=== PATIENT | female | born 2000 | race Caucasian/White ===

== ENCOUNTER 2025-08-14 17:27 | Emergency (ER) | payer OTHER ==
[~2025-08-14] VITALS: Ht 162.6 cm; Wt 45.7 kg
[2025-08-14 18:27] LABS: BASOPHILS 0.1 % (0.1-1.2); EOSINOPHILS 0 % (0.7-5.8); LYMPHOCYTES 8.7 % (19.3-51.7); MCH 29.1 PG (25.6-32.2); MCHC 34.2 g/dL (32.2-35.5); MCV 85.1 fL (79.4-94.8); MONOCYTES 8.0 % (4.7-12.5); NEUTROPHILS 82.9 % (34.0-71.1); RBC 4.64 M/uL (3.93-5.22)
[2025-08-14 18:44] LABS: ALCOHOL, MEDICAL <3 ng/dL (<3); ALT (SGPT) 17 U/L (14-59); AST (SGOT) 22 U/L (15-37); GLOMERULAR FILTRATION RATE,EST 130 mL/min (>60); PROTEIN, TOTAL 8.3 g/dL (6.4-8.2); UREA NITROGEN 13 mg/dL (7-18)
[2025-08-14] MEDS ORDERED: LACTATED RINGER'S 1,000 ML IV ONE (19:45)
[2025-08-14] MEDS ORDERED: LORazepam 2 MG/ML VIAL IV ONE (19:45)
[2025-08-14 19:54] LABS: BLOOD/HGB, URINE LARGE (Negative); KETONE, URINE SMALL (Negative); LEUK ESTERASE, URINE NEGATIVE (negative); NITRITE, URINE NEGATIVE (negative)
[2025-08-14 19:55] VITALS: BP 131/74
[2025-08-14 19:57] LABS: PREGNANCY TEST, URINE NEGATIVE (NEG)
[2025-08-14 20:05] LABS: BACTERIA, URINE NONE SEEN /hpf (negative); CASTS, URINE NONE SEEN \\lpf; CRYSTALS, URINE AMORPHOUS URATES 1+ (0-1+); EPITHELIAL CELLS, URINE SQUAMOUS 2+ /lpf (0-1+); REFLEX CULTURE, URINE No (No)
[2025-08-14 20:16] LABS: AMPHETAMINES, URINE NEGATIVE (NEGATIVE); BARBITURATES, URINE NEGATIVE (NEGATIVE); BENZODIAZEPINE, URINE NEGATIVE (NEGATIVE); CANNABINOID, URINE POSITIVE (NEGATIVE); COCAINE, URINE POSITIVE (NEGATIVE); ECSTASY, URINE NEGATIVE (NEGATIVE); FENTANYL, URINE NEGATIVE (NEGATIVE); METHADONE, URINE NEGATIVE (NEGATIVE); OPIATES, URINE NEGATIVE (NEGATIVE); OXYCODONE, URINE NEGATIVE (NEGATIVE); PHENCYCLIDINE, URINE NEGATIVE (NEGATIVE)
== END 2025-08-14 19:55 | disposition left against medical advice (07) ==
LOC: ED 17:27
PROVIDERS: Emergency Medicine
DX: R56.9 Unspecified convulsions (principal); Z53.29 Procedure and treatment not carried out because of patient's decision for other reasons
CPT/HCPCS: 36415; 80053; 80307; 81001; 83735; 84703; 85025; 99284; G0480

== ENCOUNTER 2025-08-25 04:07 | Emergency (ER) | payer OTHER ==
[~2025-08-25] VITALS: Ht 162.6 cm; Wt 46.0 kg
--- OUTSIDE RECORDS SUMMARY | 2025-08-25 04:14 | XMS ---
PreManage Notification: MARTIN CEBALLOS Security Save All Operator Events No recent Security Events currently on file CRITERIA MET - [facility] - 2 Visits in 30 Days CARE PROVIDERS -Carlos DMD Dentist: Movie Actor Current PHONE: [phone] BASIM COOPER Nurse Practitioner: Family [facility] [phone] [facility]: [facility] MEDICAL PHONE: [phone] MANUEL MIJARES Nurse Practitioner Current PHONE: [phone] CHANTEL ALBERT) Physician Audio Operator James KEITA PHONE: [phone] Josefa has no Care Guidelines for this patient. EMahin VISIT COUNT (12 MO.) 2 ANSHUL Calderon (Lamar TRONCOSO) TOTAL 3 NOTE: Visits indicate total known visits. ED/UCC VISIT TRACKING (12 MO.) 08/25/2025 04:08 ANSHUL Velazquez TYPE: Emergency COMPLAINT: - SEIZURE 08/14/2025 17:29 ANSHUL [place] TYPE: Emergency COMPLAINT: - SEIZURE DIAGNOSES: - Procedure and treatment not carried out because of patient's decision for other reasons - Unspecified convulsions 12/13/2024 12:49 Candie SANCHEZ [place] ([facility]) TYPE: Emergency DIAGNOSES: - Streptococcal pharyngitis - Fever (9 Weeks To 74 Years) - Poss Infection INPATIENT VISIT TRACKING (12 MO.) No inpatient visits to display in this time frame [id number]
[2025-08-25 04:20] LABS: BASOPHILS 0.1 % (0.1-1.2); EOSINOPHILS 0 % (0.7-5.8); LYMPHOCYTES 10.1 % (19.3-51.7); MCH 29.1 PG (25.6-32.2); MCHC 34.5 g/dL (32.2-35.5); MCV 84.4 fL (79.4-94.8); MONOCYTES 6.2 % (4.7-12.5); NEUTROPHILS 83.2 % (34.0-71.1); RBC 4.50 M/uL (3.93-5.22)
[2025-08-25 04:54] LABS: GLOMERULAR FILTRATION RATE,EST 125.0 mL/min (>60); UREA NITROGEN 10.0 mg/dL (7-18)
[2025-08-25 04:55] LABS: ALT (SGPT) 21.0 U/L (14-59); AST (SGOT) 21.0 U/L (15-37); PROTEIN, TOTAL 7.5 g/dL (6.4-8.2)
[2025-08-25 05:00] LABS: BLOOD/HGB, URINE MODERATE (Negative); KETONE, URINE NEGATIVE (Negative); LEUK ESTERASE, URINE NEGATIVE (negative); NITRITE, URINE NEGATIVE (negative)
[2025-08-25 05:03] LABS: PREGNANCY TEST, URINE NEGATIVE (NEG)
[2025-08-25 05:06] LABS: BACTERIA, URINE RARE /hpf (negative); CASTS, URINE NONE SEEN \\lpf; CRYSTALS, URINE NONE SEEN (0-1+); EPITHELIAL CELLS, URINE SQUAMOUS 3+ /lpf (0-1+); REFLEX CULTURE, URINE No (No)
[2025-08-25 05:14] LABS: AMPHETAMINES, URINE NEGATIVE (NEGATIVE); BARBITURATES, URINE NEGATIVE (NEGATIVE); BENZODIAZEPINE, URINE NEGATIVE (NEGATIVE); CANNABINOID, URINE POSITIVE (NEGATIVE); COCAINE, URINE POSITIVE (NEGATIVE); ECSTASY, URINE NEGATIVE (NEGATIVE); FENTANYL, URINE NEGATIVE (NEGATIVE); METHADONE, URINE NEGATIVE (NEGATIVE); OPIATES, URINE NEGATIVE (NEGATIVE); OXYCODONE, URINE NEGATIVE (NEGATIVE); PHENCYCLIDINE, URINE NEGATIVE (NEGATIVE)
[2025-08-25] MEDS ORDERED: HYDROCODONE BIT/ACETAMINOPHEN 5/325 MG 1 TAB HOME.PACK PO PRN (06:15)
[2025-08-25 06:32] VITALS: BP 136/93
== END 2025-08-25 06:34 | disposition home or self-care (01) ==
LOC: ED 04:07
PROVIDERS: Emergency Medicine
DX: R56.9 Unspecified convulsions (principal); S62.634A Displaced fracture of distal phalanx of right ring finger, initial encounter for closed fracture; F14.10 Cocaine abuse, uncomplicated; Y04.8XXA Assault by other bodily force, initial encounter; Z91.030 Bee allergy status
CPT/HCPCS: 36415; 70450; 73130; 80053; 80307; 81001; 84703; 85025; 99284-25

== ENCOUNTER 2025-09-08 22:08 | Emergency (ER) | payer OTHER ==
[~2025-09-08] VITALS: Ht 162.6 cm; Wt 49.3 kg
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
[2025-09-09] MEDS ORDERED: KEPPRA500 MG PO (02:23)
[2025-09-09 03:06] VITALS: BP 98/53
== END 2025-09-09 03:07 | disposition home or self-care (01) ==
LOC: ED 22:08
DX: G40.909 Epilepsy, unspecified, not intractable, without status epilepticus (principal); Z91.030 Bee allergy status
CPT/HCPCS: 99284

== ENCOUNTER 2025-09-09 12:12 | Emergency (ER) | payer OTHER ==
[~2025-09-09] VITALS: Ht 162.6 cm; Wt 49.3 kg
[~2025-09-09 12:12] MED LIST: KEPPRA500 MG PO
--- OUTSIDE RECORDS SUMMARY | 2025-09-09 12:19 | XMS ---
PreManage Notification: MARTIN CEBALLOS Security Hand Shaper Events No recent Security Events currently on file CRITERIA MET - [facility] - 2 Visits in 30 Days CARE PROVIDERS -Carlos DMD Dentist: Instructor Adjunct Surgical Technician Current PHONE: [phone] BASIM COOPER Nurse Practitioner: Family Current PHONE: [phone] [facility]: [facility] MEDICAL PHONE: [phone] MANUEL MIJARES Nurse Practitioner Current PHONE: [phone] CHANTEL ALBERT) Physician Lens Edger James KEITA PHONE: [phone] Josefa has no Care Guidelines for this patient. EMahin VISIT COUNT (12 MO.) 4 ANSHUL Calderon (Lamar TRONCOSO) TOTAL 5 NOTE: Visits indicate total known visits. ED/UCC VISIT TRACKING (12 MO.) 09/09/2025 12:12 [place]: [place] COMPLAINT: - SEIZURE 09/08/2025 22:08 [place] TYPE: Emergency COMPLAINT: - SEIZURE 08/25/2025 [...] reasons - Unspecified convulsions 12/13/2024 12:49 Candie ZEE ([facility]) TYPE: Emergency DIAGNOSES: - Streptococcal pharyngitis - Fever (9 Weeks To 74 Years) - Poss Infection INPATIENT VISIT TRACKING (12 MO.) No inpatient visits to display in this time frame [id number]
[2025-09-09] MEDS ORDERED: LORazepam 2 MG/ML VIAL IV ONE (13:15)
[2025-09-09 14:14] LABS: BASOPHILS 0.3 % (0.1-1.2); EOSINOPHILS 0.3 % (0.7-5.8); LYMPHOCYTES 17.8 % (19.3-51.7); MCH 28.9 PG (25.6-32.2); MCHC 34.0 g/dL (32.2-35.5); MCV 85.1 fL (79.4-94.8); MONOCYTES 7.9 % (4.7-12.5); NEUTROPHILS 73.4 % (34.0-71.1); RBC 4.22 M/uL (3.93-5.22)
[2025-09-09 14:53] LABS: ALCOHOL, MEDICAL <3 ng/dL (<3); ALT (SGPT) 9 U/L (14-59); AST (SGOT) 13 U/L (15-37); GLOMERULAR FILTRATION RATE,EST 132 mL/min (>60); PROTEIN, TOTAL 6.8 g/dL (6.4-8.2); UREA NITROGEN 9 mg/dL (7-18)
[2025-09-09 15:43] VITALS: BP 99/49
== END 2025-09-09 15:33 | disposition home or self-care (01) ==
LOC: ED 12:12
PROVIDERS: Emergency Medicine
DX: R56.9 Unspecified convulsions (principal); Z91.030 Bee allergy status
CPT/HCPCS: 36415; 80053; 80307; 84703; 85025; 96374; 96375; 99284-25; G0480; J1953; J2060